=== PATIENT | female | born 1985 | race Hispanic/Latino ===

== ENCOUNTER 2016-11-25 07:04 | Inpatient (IN) | payer OTHER ==
[2016-11-25] MEDS ORDERED: ePHEDrine SULFATE IV PRN (07:18)
[2016-11-25] MEDS ORDERED: XYLOCAINE 2% INFILTRATI ONE (07:18)
[2016-11-25] MEDS ORDERED: MINERAL OIL PO PRN (07:18)
[2016-11-25] MEDS ORDERED: BRETHINE SUB-Q PRN (07:18)
[2016-11-25] MEDS ORDERED: POLYCILLIN/NS 2 GM/100 ML 2 GM/100 ML BAG IV ONE (07:18)
[2016-11-25] MEDS ORDERED: ZOFRAN IV PRN ×3 (07:18→17:53)
[2016-11-25] MEDS ORDERED: BRETHINE IVP PRN (07:18)
--- NOTE | 2016-11-25 07:36 | History and Physical Report ---
History of Present Illness Date of examination: 11/25/16 (SROM this AM) Date of admission: 11/25/16 07:07 History of present illness: EDC Confirmation: 12/04/2016 Gestational Age: 8 weeks Past History : 2 Living Children: 0 Para: 0 Spont. 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 Infection History Varicella/Chicken Pox Status: Previous Disease Genetic History Congenital Heart Defect: Mom: no Dad: no Elmo Disease: Mom: no Dad: no Thalassemia Mom: no Dad: no Neural Tube Defect Mom: no Dad: no Down's Syndrome Mom: no Dad: no Russell-Sachs Mom: no Dad: no Sickle Cell Disease/Trait Mom: no Dad: no Hemophilia Mom: no Dad: no Muscular Dystrophy Mom: no Dad: no Cystic Fibrosis Mom: no Dad: no Mcintosh Chorea Mom: no Dad: no Mental Retardation Mom: no Dad: no Fragile X Mom: no Dad: no Other Genetic/Chromosomal Disorder Mom: no Dad: no Child w/other defect Mom: no Dad: no Enviromental Exposures Xray Exposure: no Medication, drug, or alcohol use since LMP: no Chemical/Other Exposure: no Exposure to Cat Liter: no Hx of Parvovirus (Fifth Disease): no Occupational Exposure to Children: none Current Allergies (reviewed today): * OMNICEF (Critical) Laboratory Results Date/Time Collected: 04/24/2016 Routine Urinalysis Leukocytes: negative Nitrite: negative Urobilinogen: negative Protein: Negative Blood: negative Ketone: negative Bilirubin: negative Glucose: Negative Urine HCG: positive Review of Systems General Denies fever, chills, sweats, anorexia, fatigue, weakness, malaise, weight loss and sleep disorder. Denies nausea, vomiting, headache, swelling of legs, abdominal pain, vaginal discharge, vaginal bleeding and contractions. Denies vaginal discharge, incontinence, dysuria, hematuria, urinary frequency, amenorrhea, menorrhagia, abnormal vaginal bleeding, pelvic pain, genital sores, decreased libido, painful periods, painful sex, urinary urgency, hot flashes, vaginal dryness, vaginal itching and vaginal odor. CV Denies chest pains, palpitations, syncope, dyspnea on exertion, orthopnea, PND and peripheral edema. Resp Denies cough, dyspnea at rest, excessive sputum, hemoptysis, wheezing and pleurisy. GI Denies nausea, vomiting, diarrhea, constipation, change in bowel habits, abdominal pain, melena, hematochezia, jaundice, gas/bloating, indigestion/ heartburn, dysphagia and odynophagia. Endo Denies cold intolerance, heat intolerance, polydipsia, polyphagia, polyuria and unusual weight change. Breast Denies left breast lump, right breast lump, nipple discharge, bloody discharge from nipple, breast pain, abnormal mammogram and breast enlargement. MS Denies back pain, joint pain, joint swelling, muscle cramps, muscle weakness, stiffness, arthritis, sciatica, restless legs, leg pain at night and leg pain with exertion. Derm Denies rash, itching, dryness and suspicious lesions. Neuro Denies paralysis, paresthesias, headache, seizures, tremors, vertigo, transient blindness, frequent falls, frequent headaches and difficulty walking. Psych Denies depression, anxiety, irritability and mood swings. Eyes Denies blurring, diplopia, irritation, discharge, vision loss, eye pain and photophobia. ENT Denies earache, ear discharge, tinnitus, decreased hearing, nasal congestion, nosebleeds, sore throat and hoarseness. Allergy Denies urticaria, allergic rash, hay fever and recurrent infections. Heme Denies abnormal bruising, bleeding and enlarged lymph nodes. PHYSICAL EXAM HEENT: PERRLA, normal conjunctiva, external nose and nasal mucosa normal, oropharynx clear Neck/Thyroid: supple, thyroid normal Skin no significant abnormal lesions or rashes Chest: respiratory effort normal, clear to auscultation Breasts: normal without skin changes or masses CV: regular, normal S1-S2, no murmur, no rub, no gallop Abdomen: normal bowel sounds, soft, nontender, no HSM Musculoskeletal: grossly normal ROM in joints, no joint tenderness or muscle weakness Neuro: grossly normal DTRs, sensation, strength, cranial nerves Extremities: no clubbing, cyanosis, or edema Past History - Obstetrical History Expected Date of Delivery: 12/04/16 Actual Gestation: 38 Week(s) 5 Day(s) : 2 Para: 0 Hx # Term Pregnancies: 0 Spontaneous Abortions: 1 Number of Living Children: 0 Medications and Allergies Allergies Allergy/AdvReac Type Severity Reaction Status Date / Time cefdinir [From Omnicef] Allergy Shortness Unverified 11/25/16 07:05 of Breath Active Meds: Active Medications Ampicillin Sodium (Polycillin/Ns 1 Gm/50 Ml) 1 gm in 50 mls @ 100 mls/hr IV Q4HR L[facility]X PRN Reason: Protocol Ampicillin Sodium (Polycillin/Ns 2 Gm/100 Ml) 2 gm in 100 mls @ 100 mls/hr IV ONCE ONE PRN Reason: Protocol Stop: 11/25/16 08:17 - Physical Exam Breasts: Positive: deferred Cardiovascular: Regular rate, Normal S1, Normal S2 Lungs: Positive: Normal air movement Abdomen: Positive: normal appearance, soft, normal bowel sounds. Negative: distention, tenderness Genitourinary (Female): Positive: normal external genitalia Vulva: both: normal Vagina: Positive: normal moisture. Negative: discharge Cervix: Negative: lesion, discharge Uterus: Positive: normal size, normal contour Adnexa: both: normal Anus/Rectum: Positive: normal perianal skin, heme negative. Negative: rectal mass, hemorrhoids Extremities: Positive: normal Deep Tendon Reflex Grade: Normal +2 - Obstetrical FHR: category 1 Uterine Contraction Monitor Mode: External Cervical Dilatation: 1.5 Cervical Effacement Percentage: 50 station: -2 Uterine Contraction Pattern: Irregular Uterine Tone Measurement Phase: Resting Uterine Contraction Intensity: Mild Results All other labs normal. Tests: (2) Strep Gp B CARLEEN (057344) ! Strep Gp B CARLEEN [A] Positive HBsAg Screen Negative Negative *1 Rubella Antibodies, IgG 1.54 index Immune >0.99 *2 Non-immune <0.90 Equivocal 0.90 - 0.99 Immune >0.99 ABO Grouping O *3 Rh Factor Positive *4 Please note: Prior records for this patient's ABO / Rh type are not available for additional verification. Antibody Screen Negative Negative *5 RPR Non Reactive Non Reactive *6 WBC 8.9 x10E3/uL 3.4-10.8 *7 RBC 3.97 x10E6/uL 3.77-5.28 *8 Hemoglobin 12.0 g/dL 11.1-15.9 *9 Hematocrit 36.6 % 34.0-46.6 *10 MCV 92 fL 79-97 *11 MCH 30.2 pg 26.6-33.0 *12 MCHC 32.8 g/dL 31.5-35.7 *13 RDW 13.5 % 12.3-15.4 *14 Platelets 244 x10E3/uL 150-379 *15 Neutrophils 58 % *16 Lymphs 35 % *17 Monocytes 6 % *18 Eos 1 % *19 Basos 0 % *20 ! Immature Cells <No Reported Value> *21 Neutrophils (Absolute) 5.2 x10E3/uL 1.4-7.0 *22 Lymphs (Absolute) 3.1 x10E3/uL 0.7-3.1 *23 Monocytes(Absolute) 0.5 x10E3/uL 0.1-0.9 *24 Eos (Absolute) 0.1 x10E3/uL 0.0-0.4 *25 Baso (Absolute) 0.0 x10E3/uL 0.0-0.2 *26 ! Immature Granulocytes 0 % *27 ! Immature Grans (Abs) 0.0 x10E3/uL 0.0-0.1 *28 ! NRBC <No Reported Value> *29 Hematology Comments: <No Reported Value> *30 Tests: (2) Cystic Fibrosis Profile (344812) ! CF, Screen Comment: *31 RESULTS: Negative for 32 mutations analyzed Tests: (3) HB Solu + Rflx Fra (386654) Hemoglobin (Hgb) Solubility Negative Negative *33 Tests: (4) Panel 341210 (637751) HIV Screen 4th Generation wRfx Non Reactive Non Reactive *34 Tests: (5) HCV Ab w/Rflx to Verification (125169) ! HCV Ab <0.1 s/co ratio 0.0-0.9 *35 Assessment and Plan - Patient Problems (1) 38 weeks gestation of Onset Date: ~11/25/16 Current Visit: Yes Status: Acute Plan to address problem: 31yo @ 38.5 weeks with SROM clear fluid GBS + Orders in EMR (2) Group B Streptococcus carrier state affecting Onset Date: ~11/25/16 Current Visit: Yes Status: Acute Plan to address problem: Pt states she has no problem with Ampicillin Will order to treat GBS+ Re-eval as needed.
[2016-11-25] MEDS ORDERED: PITOCin/NS 20 UNIT/1000ML DRIP 20 UNITS/1,000 ML BAG IV SCH ×3 (08:00→17:53)
[2016-11-25] MEDS ORDERED: LACTATED RINGERS 1,000 ML IV SCH ×2 (08:00→14:00)
[2016-11-25] MEDS ORDERED: PITOCin/NS 30 UNIT/500ML 30 UNITS/500 ML BAG IV SCH (08:00)
[2016-11-25 08:11] LABS: Hematocrit 38.1 % (30.3-42.9); Hemoglobin 12.4 gm/dl (10.1-14.3); Mean Corpuscular HGB Conc 33 % (30-34); Mean Corpuscular Hemoglobin 28 pg (28-32); Mean Corpuscular Volume 85 fl (79-97); Platelet Count 199 K/mm3 (140-440); Red Blood Count 4.49 M/mm3 (3.65-5.03); Red Cell Distribution Width 15.9 % (13.2-15.2); White Blood Count 13.3 K/mm3 (4.5-11.0)
[2016-11-25] MEDS ORDERED: PITOCin/NS 20 UNIT/1000ML DRIP IV ONE (08:30)
[2016-11-25] MEDS ORDERED: PITOCin/NS 30 UNIT/500ML IV ONE (09:00)
[2016-11-25] MEDS: PITOCin/NS 30 UNIT/500ML 30 UNITS/500 ML BAG IV SCH ×4 (09:38→11:13)
[2016-11-25] MEDS ORDERED: POLYCILLIN/NS 1 GM/50 ML 1 GM/50 ML BAG IV SCH (11:20)
[2016-11-25] MEDS: SUBLIMAZE IV PRN ×2 (12:14→13:40)
[2016-11-25] MEDS ORDERED: BICITRA ONE (13:34)
[2016-11-25] MEDS ORDERED: REGLAN ONE (13:35)
[2016-11-25] MEDS ORDERED: PEPCID IV ONE ×2 (13:35→13:46)
--- NOTE | 2016-11-25 13:43 | Progress Note ---
Assessment and Plan SVE discovered BREECH complete Vertex in LUQ maternal abdomen. notified Pt consented Preop orders in EMR - Patient Problems (1) 38 weeks gestation of Onset Date: ~11/25/16 Current Visit: Yes Status: Acute (2) Group B Streptococcus carrier state affecting Onset Date: ~11/25/16 Current Visit: Yes Status: Acute Subjective - Subjective Date of service: 11/25/16 (sve BREECH) Interval history: EDC Confirmation: 12/04/2016 Gestational Age: 8 weeks Past History : 2 Living Children: 0 Para: 0 Spont. 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 Infection History Varicella/Chicken Pox Status: Previous Disease Genetic History Congenital Heart Defect: Mom: no Dad: no Elmo Disease: Mom: no Dad: no Thalassemia Mom: no Dad: no Neural Tube Defect Mom: no Dad: no Down's Syndrome Mom: no Dad: no Russell-Sachs Mom: no Dad: no Sickle Cell Disease/Trait Mom: no Dad: no Hemophilia Mom: no Dad: no Muscular Dystrophy Mom: no Dad: no Cystic Fibrosis Mom: no Dad: no Parke Chorea Mom: no Dad: no Mental Retardation Mom: no Dad: no Fragile X Mom: no Dad: no Other Genetic/Chromosomal Disorder Mom: no Dad: no Child w/other defect Mom: no Dad: no Enviromental Exposures Xray Exposure: no Medication, drug, or alcohol use since LMP: no Chemical/Other Exposure: no Exposure to Cat Liter: no Hx of Parvovirus (Fifth Disease): no Occupational Exposure to Children: none Current Allergies (reviewed today): * OMNICEF (Critical) Laboratory Results Date/Time Collected: 04/24/2016 Routine Urinalysis Leukocytes: negative Nitrite: negative Urobilinogen: negative Protein: Negative Blood: negative Ketone: negative Bilirubin: negative Glucose: Negative Urine HCG: positive Review of Systems General Denies fever, chills, sweats, anorexia, fatigue, weakness, malaise, weight loss and sleep disorder. Denies nausea, vomiting, headache, swelling of legs, abdominal pain, vaginal discharge, vaginal bleeding and contractions. Denies vaginal discharge, incontinence, dysuria, hematuria, urinary frequency, amenorrhea, menorrhagia, abnormal vaginal bleeding, pelvic pain, genital sores, decreased libido, painful periods, painful sex, urinary urgency, hot flashes, vaginal dryness, vaginal itching and vaginal odor. CV Denies chest pains, palpitations, syncope, dyspnea on exertion, orthopnea, PND and peripheral edema. Resp Denies cough, dyspnea at rest, excessive sputum, hemoptysis, wheezing and pleurisy. GI Denies nausea, vomiting, diarrhea, constipation, change in bowel habits, abdominal pain, melena, hematochezia, jaundice, gas/bloating, indigestion/ heartburn, dysphagia and odynophagia. Endo Denies cold intolerance, heat intolerance, polydipsia, polyphagia, polyuria and unusual weight change. Breast Denies left breast lump, right breast lump, nipple discharge, bloody discharge from nipple, breast pain, abnormal mammogram and breast enlargement. MS Denies back pain, joint pain, joint swelling, muscle cramps, muscle weakness, stiffness, arthritis, sciatica, restless legs, leg pain at night and leg pain with exertion. Derm Denies rash, itching, dryness and suspicious lesions. Neuro Denies paralysis, paresthesias, headache, seizures, tremors, vertigo, transient blindness, frequent falls, frequent headaches and difficulty walking. Psych Denies depression, anxiety, irritability and mood swings. Eyes Denies blurring, diplopia, irritation, discharge, vision loss, eye pain and photophobia. ENT Denies earache, ear discharge, tinnitus, decreased hearing, nasal congestion, nosebleeds, sore throat and hoarseness. Allergy Denies urticaria, allergic rash, hay fever and recurrent infections. Heme Denies abnormal bruising, bleeding and enlarged lymph nodes. PHYSICAL EXAM HEENT: PERRLA, normal conjunctiva, external nose and nasal mucosa normal, oropharynx clear Neck/Thyroid: supple, thyroid normal Skin no significant abnormal lesions or rashes Chest: respiratory effort normal, clear to auscultation Breasts: normal without skin changes or masses CV: regular, normal S1-S2, no murmur, no rub, no gallop Abdomen: normal bowel sounds, soft, nontender, no HSM Musculoskeletal: grossly normal ROM in joints, no joint tenderness or muscle weakness Neuro: grossly normal DTRs, sensation, strength, cranial nerves Extremities: no clubbing, cyanosis, or edema Patient reports: movement normal Objective - Vital Signs Vital Signs: Vital Signs - 12hr 11/25/16 11/25/16 11/25/16 07:35 07:52 09:38 Pulse Rate 80 83 88 Blood Pressure 149/78 144/72 178/85 11/25/16 11/25/16 11/25/16 09:45 10:14 10:40 Pulse Rate 80 70 80 Blood Pressure 153/72 156/79 146/75 11/25/16 11/25/16 11/25/16 11:17 11:50 11:55 Pulse Rate 81 86 82 Blood Pressure 158/79 162/77 157/75 - Exam Breasts: deferred Cardiovascular: Regular rate Lungs: Normal air movement Abdomen: Present: normal appearance, soft. Absent: distention, tenderness Uterus: Present: normal FHR: auscultation normal, category 1 Uterine Contraction Monitor Mode: External Cervical Dilatation: 4 Cervical Effacement Percentage: 80 station: -2 Uterine Contraction Pattern: Regular Uterine Tone Measurement Phase: Contraction Uterine Contraction Intensity: Moderate Extremities: edema Deep Tendon Reflex Grade: Normal +2 - Labs Labs: Abnormal Labs 11/25/16 07:45 WBC 13.3 H RDW 15.9 H Laboratory Results - last 24 hr 11/25/16 11/25/16 11/25/16 07:45 07:45 07:45 WBC 13.3 H RBC 4.49 Hgb 12.4 Hct 38.1 MCV 85 MCH 28 MCHC 33 RDW 15.9 H Plt Count 199 RPR Nonreactive Blood Type O POSITIVE Antibody Screen TNR SHERRI Antibody Screen Negative
[2016-11-25] MEDS ORDERED: BICITRA PO ONE (13:46)
[2016-11-25] MEDS ORDERED: REGLAN IV ONE (13:46)
[2016-11-25] MEDS ORDERED: ANCEF/STERILE WATER 2 GM/20 ML 2 GM/20 ML SYRINGE IV NR (14:00)
[2016-11-25] MEDS ORDERED: NARCAN 0.4 MG/1 ML IV PRN ×2 (14:02→17:53)
[2016-11-25] MEDS ORDERED: PHENERGAN PO PRN (14:02)
[2016-11-25] MEDS ORDERED: DILAUDID IV PRN (14:02)
--- NOTE | 2016-11-25 14:02 | Anesthesia Consultation ---
Anesthesia Consult and Med Hx Date of service: 11/25/16 - Airway Anesthetic Teeth Evaluation: Good ROM Head & Neck: Adequate Mental/Hyoid Distance: Adequate Mallampati Class: Class II - Pre-Operative Health Status ASA Pre-Surgery Classification: ASA2 Proposed Anesthetic Plan: Epidural, Spinal - Pulmonary Hx Asthma: No - Cardiovascular System Hx Hypertension: No - Central Nervous System Hx Seizures: No Hx Psychiatric Problems: No - Endocrine Hx Renal Disease: No Hx Hypothyroidism: No Hx Hyperthyroidism: No - Hematic Hx Anemia: No Hx Sickle Cell Disease: No - Other Systems Hx Alcohol Use: No - Additional Comments Anesthesia Medical History Comments: breeched presentation
[2016-11-25] MEDS ORDERED: TORADOL IV PRN (14:03)
[2016-11-25] MEDS ORDERED: BENADRYL IV PRN (14:03)
--- NOTE | 2016-11-25 14:04 | Anesthesia Day of Surgery ---
Anesthesia Day of Surgery - Day of Surgery Patient Examined: Yes Patient H&P Reviewed: Yes Patient is NPO: Yes
[2016-11-25] MEDS ORDERED: MORPHINE ONE (14:10)
[2016-11-25] MEDS ORDERED: WATER FOR IRRIG STERILE IR ONE (14:28)
[2016-11-25] MEDS ORDERED: NACL 0.9% IR ONE (14:28)
[2016-11-25] MEDS ORDERED: SODIUM CHLORIDE FLUSH SYRINGE 10 ML IV NR ×2 (15:00→17:53)
[2016-11-25] MEDS ORDERED: ZOFRAN ONE (15:08)
--- NOTE | 2016-11-25 15:16 | Operative Report ---
Operative Report Operative Report: Date of procedure: 12/05/2016 Pre-operative diagnosis: Any at 38 weeks 5 days, premature rupture of membranes, breech presentation Post-operative diagnosis: Same Procedure name(s): Primary low transverse section Surgeon: Haroon Kaplan MD Shoe Lay Out Planner: [] Anesthesia: Spinal EBL: 600 mL Complications: None Findings: Normal uterus tubes and ovaries bilaterally. Male infant weight 6 lbs. 11 oz. Apgars 8 at 1 minute and 9 at 5 minutes. had nuchal cord 2 Specimen(s): None Procedure: The patient was brought to the operating room. A spinal was placed without any complications. She was then placed in left lateral tilt. Prepped and draped in the usual sterile manner. After testing for adequate anesthesia level, a Pfannenstiel incision was made. This incision was taken down to the fascia. The fascia was then nicked in the midline. This incision was extended out laterally with Middleton scissors. The fascia was then sharply and bluntly from the underlying rectus muscles. The rectus muscles were bluntly and sharply . The peritoneum was then entered with the dicer operator's fingers. This incision was spread vertically with care not to damage the bladder below. Alin retractor was in place. The bladder flap was then formed sharply and bluntly with Metzenbaum scissors. A transverse incision was made in lower uterine segment. This incision was extended laterally with the operators fingers. The amniotic sac was then entered bluntly with the dicer operator' s fingers. The was delivered by delivered in the breech first flexing and extending the lower extremities followed by raising the breech then sweeping flexing and extending the upper extremities and after coming head was then delivered safely. The infant was bulb suctioned on the mother's abdomen. Cord was double clamped and cut. The infant was then passed to the nursery personnel who were in attendance. The above scores were given by the nursery personnel. The placenta was then bluntly removed. The uterus was then externalized and wiped clean the remaining products. The uterine incision was closed in layers. The first incision was closed in a locking manner using 0 Vicryl. This was followed by imbricating stitch also with 0 Vicryl. This closure was hemostatic. The bladder flap was copiously irrigated and found to be hemostatic. The pelvis was copiously irrigated and found to be hemostatic. The uterus was then placed back to the patient's abdomen. The retractors were removed. The rectus muscles were inspected and found to be hemostatic. The fascia was then closed in a running manner using 0 Vicryl. This incision was hemostatic irrigation Bovie. The skin was reapproximated with 4-0 Vicryl subcuticularly. The patient tolerated procedure well. Her urine was clear. The infant was admitted to the [facility] baby nursery. The patient was accompanied to recovery room in good condition. Instrument count correct 3.
[2016-11-25] MEDS ORDERED: MYLICON PO PRN (17:53)
[2016-11-25] MEDS ORDERED: MILK OF MAGNESIA PO PRN (17:53)
[2016-11-25] MEDS ORDERED: ANUCORT-HC PR PRN (17:53)
[2016-11-25] MEDS ORDERED: LANSINOH TP PRN (17:53)
[2016-11-25] MEDS ORDERED: TUCKS PAD TP PRN (17:53)
[2016-11-25] MEDS: TORADOL IV SCH (18:08)
[2016-11-25] MEDS: CLEOCIN 600 MG/50 mL 600 MG/50 ML BAG IV SCH (19:59)
[2016-11-25] MEDS: D5LR 1,000 ML IV SCH (23:05)
[2016-11-26] MEDS: TORADOL IV SCH ×2 (00:12→05:42)
[2016-11-26 01:46] LABS: Hematocrit 31.9 % (30.3-42.9); Hemoglobin 10.5 gm/dl (10.1-14.3)
[2016-11-26] MEDS: CLEOCIN 600 MG/50 mL 600 MG/50 ML BAG IV SCH (03:56)
[2016-11-26] MEDS: D5LR 1,000 ML IV SCH (05:43)
--- NOTE | 2016-11-26 07:37 | Progress Note ---
Assessment and Plan Patient doing well, pain well controlled, sitting up in bed - assisting w/ . postop H&H 10.5/31.9, AF, b/p 120-130's/60-70's. Activity and diet as tolerated. Continue current postop pathway. - Patient Problems (1) delivery delivered Current Visit: Yes Status: Acute Subjective - Subjective Date of service: 11/26/16 Principal diagnosis: postop day #1 s/p primary c/s for malpresentation Patient reports: appetite normal, voiding normally, pain well controlled, ambulating normally, no dizzy ambulation, no nauseated : doing well (working with on proper latch) Objective - Vital Signs Latest vital signs: Vital Signs Temp Pulse Resp BP BP Pulse Ox 11/26/16 05:42 20 11/26/16 01:18 98.3 F 87 20 138/73 11/26/16 00:12 20 11/25/16 21:02 97.7 F 81 18 138/65 11/25/16 16:45 97.5 F L 82 18 136/62 98 11/25/16 16:10 65 14 123/64 97 11/25/16 16:05 62 20 124/68 98 11/25/16 16:00 64 19 127/65 98 11/25/16 15:55 64 18 121/65 98 11/25/16 15:50 65 17 130/68 98 11/25/16 15:45 63 19 129/66 98 11/25/16 15:40 67 19 126/66 98 11/25/16 15:35 68 20 123/63 98 11/25/16 15:30 69 19 127/66 98 11/25/16 15:28 68 22 122/67 98 11/25/16 15:25 122/67 11/25/16 15:22 77 18 128/66 98 11/25/16 15:20 97.6 F 76 18 129/64 97 11/25/16 15:16 85 20 98 11/25/16 15:14 97.6 F 76 18 129/64 97 11/25/16 11:55 82 157/75 11/25/16 11:50 86 162/77 11/25/16 11:17 81 158/79 11/25/16 10:40 80 146/75 11/25/16 10:14 70 156/79 11/25/16 09:45 80 153/72 11/25/16 09:38 88 178/85 11/25/16 07:52 83 144/72 11/25/16 07:35 80 149/78 Intake and Output 11/25/16 11/25/16 11/26/16 15:59 23:59 07:59 Intake Total 806.333 650 829.167 Output Total 950 100 Balance -143.667 550 829.167 Intake: IV 806.333 650 829.167 CLEOCIN 600 MG/50 mL 600 50 mg In 50 ml @ 100 mls/hr IV Q8H LENNOX Rx#:[id number] D5lr 1,000 ml @ 125 mls/ 829.167 hr IV DIRECT LENNOX Rx#: [id number] PITOCin/NS 30 UNIT/500ML 6.333 30 units In 500 ml @ 4 mls/hr IV Q30MIN LENNOX Rx#: [id number] Output: Urine 950 100 Indwelling Catheter 850 Other: Total, Output Amount 150 Weight 85.729 kg - Exam Breasts: Present: normal, Cardiovascular: Present: Regular rate Lungs: Present: Clear to auscultation, Normal air movement Abdomen: Present: normal appearance, soft Vulva: both: normal Uterus: Present: normal, firm, fundal height at umbilicus Extremities: Present: normal Incision: Present: normal, dry, dressed (rn to remove dressing during AM care) - Labs Labs: Abnormal lab results 11/25/16 Range/Units 07:45 WBC 13.3 H (4.5-11.0) K/mm3 RDW 15.9 H (13.2-15.2) %
--- NOTE | 2016-11-26 08:22 | Progress Note ---
Subjective Date of service: 11/26/16 Principal diagnosis: postop day #1 s/p primary c/s for malpresentation Interval history: 1st POD after primary Patient is in the bed, comfortable. Pain is well controlled with pain meds. Ambulated well. No residual neurological deficit. No pruritus. No anesthesia complications Objective - Constitutional Vitals: Vital Signs - 12hr 11/25/16 11/26/16 11/26/16 21:02 00:12 01:18 Temperature 97.7 F 98.3 F Pulse Rate 81 87 Respiratory 18 20 20 Rate Blood Pressure 138/65 138/73 [Right] 11/26/16 11/26/16 03:59 05:42 Temperature 98.1 F Pulse Rate 83 Respiratory 18 20 Rate Blood Pressure 130/66 [Right] - Labs CBC & Chem 7: 11/26/16 01:33
[2016-11-26] MEDS: MOTRIN PO PRN ×3 (11:14→23:42)
[2016-11-26] MEDS: FEOSOL PO SCH (11:14)
[2016-11-26] MEDS: PRENATAL VITAMIN PO SCH (11:14)
[2016-11-27] MEDS: MOTRIN PO PRN ×3 (05:11→18:11)
--- NOTE | 2016-11-27 06:15 | Progress Note ---
Assessment and Plan - Patient Problems (1) delivery delivered Onset Date: ~11/25/16 Current Visit: Yes Status: Acute Plan to address problem: Pt OOB No voiced c/o BP 140/70 Pt upset @ feeding issues which seem to be resolved Will monitor BPs. FF below umb Lochia scant Incision D&I No s/sx of anemia Doing well s/p section P: continue pathway will continue to assist with breast feeding advise D/C tomorrow. Subjective - Subjective Date of service: 11/27/16 (OOB ambulating in room) Principal diagnosis: postop day #2 s/p primary c/s for malpresentation Interval history: EDC Confirmation: 12/04/2016 Gestational Age: 8 weeks Past History : 2 Living Children: 0 Para: 0 Spont. Ab: 1 # 1 Delivery date: 08/2015 Weeks Gestation: 6 Delivery type: SAB Comments: denies complications Risk Factors: Smoked Tobacco Use: Never smoker Smokeless Tobacco Use: Never Passive smoke exposure: no Drug use: no Caffeine use: 1 drinks per day Alcohol use: no Seatbelt use: preg-senior counsel % Dietary Counseling: pn yes Past Medical History: Reviewed history from 12/29/2014 and no changes required: migraines Past Surgical History: Reviewed history from 12/29/2014 and no changes required: positive fusion of cervical 1-2-3 2005 Past Medical History Abnormal PAP: negative DELTA Exposure: negative Infertility: negative Uterine Anomaly: negative Uterine Surgery (not C/S): negative Other Gynecologic Problems: negative Social Hx: Patient is Smoking History: Patient has never smoked. Infection History Varicella/Chicken Pox Status: Previous Disease Genetic History Congenital Heart Defect: Mom: no Dad: no Elmo Disease: Mom: no Dad: no Thalassemia Mom: no Dad: no Neural Tube Defect Mom: no Dad: no Down's Syndrome Mom: no Dad: no Russell-Sachs Mom: no Dad: no Sickle Cell Disease/Trait Mom: no Dad: no Hemophilia Mom: no Dad: no Muscular Dystrophy Mom: no Dad: no Cystic Fibrosis Mom: no Dad: no [place] Chorea Mom: no Dad: no Mental Retardation Mom: no Dad: no Fragile X Mom: no Dad: no Other Genetic/Chromosomal Disorder Mom: no Dad: no Child w/other defect Mom: no Dad: no Enviromental Exposures Xray Exposure: no Medication, drug, or alcohol use since LMP: no Chemical/Other Exposure: no Exposure to Cat Liter: no Hx of Parvovirus (Fifth Disease): no Occupational Exposure to Children: none Current Allergies (reviewed today): * OMNICEF (Critical) Laboratory Results Date/Time Collected: 04/24/2016 Routine Urinalysis Leukocytes: negative Nitrite: negative Urobilinogen: negative Protein: Negative Blood: negative Ketone: negative Bilirubin: negative Glucose: Negative Urine HCG: positive Review of Systems General Denies fever, chills, sweats, anorexia, fatigue, weakness, malaise, weight loss and sleep disorder. Denies nausea, vomiting, headache, swelling of legs, abdominal pain, vaginal discharge, vaginal bleeding and contractions. Denies vaginal discharge, incontinence, dysuria, hematuria, urinary frequency, amenorrhea, menorrhagia, abnormal vaginal bleeding, pelvic pain, genital sores, decreased libido, painful periods, painful sex, urinary urgency, hot flashes, vaginal dryness, vaginal itching and vaginal odor. CV Denies chest pains, palpitations, syncope, dyspnea on exertion, orthopnea, PND and peripheral edema. Resp Denies cough, dyspnea at rest, excessive sputum, hemoptysis, wheezing and pleurisy. GI Denies nausea, vomiting, diarrhea, constipation, change in bowel habits, abdominal pain, melena, hematochezia, jaundice, gas/bloating, indigestion/ heartburn, dysphagia and odynophagia. Endo Denies cold intolerance, heat intolerance, polydipsia, polyphagia, polyuria and unusual weight change. Breast Denies left breast lump, right breast lump, nipple discharge, bloody discharge from nipple, breast pain, abnormal mammogram and breast enlargement. MS Denies back pain, joint pain, joint swelling, muscle cramps, muscle weakness, stiffness, arthritis, sciatica, restless legs, leg pain at night and leg pain with exertion. Derm Denies rash, itching, dryness and suspicious lesions. Neuro Denies paralysis, paresthesias, headache, seizures, tremors, vertigo, transient blindness, frequent falls, frequent headaches and difficulty walking. Psych Denies depression, anxiety, irritability and mood swings. Eyes Denies blurring, diplopia, irritation, discharge, vision loss, eye pain and photophobia. ENT Denies earache, ear discharge, tinnitus, decreased hearing, nasal congestion, nosebleeds, sore throat and hoarseness. Allergy Denies urticaria, allergic rash, hay fever and recurrent infections. Heme Denies abnormal bruising, bleeding and enlarged lymph nodes. PHYSICAL EXAM HEENT: PERRLA, normal conjunctiva, external nose and nasal mucosa normal, oropharynx clear Neck/Thyroid: supple, thyroid normal Skin no significant abnormal lesions or rashes Chest: respiratory effort normal, clear to auscultation Breasts: normal without skin changes or masses CV: regular, normal S1-S2, no murmur, no rub, no gallop Abdomen: normal bowel sounds, soft, nontender, no HSM Musculoskeletal: grossly normal ROM in joints, no joint tenderness or muscle weakness Neuro: grossly normal DTRs, sensation, strength, cranial nerves Extremities: no clubbing, cyanosis, or edema Patient reports: appetite normal, voiding normally, pain well controlled, ambulating normally [place]: doing well Objective - Vital Signs Latest vital signs: Vital Signs Temp Pulse Resp BP BP Pulse Ox 11/27/16 04:05 98 F 75 20 145/77 100 11/27/16 01:22 98.9 F 93 H 20 145/69 96 11/26/16 16:00 98.4 F 80 18 132/68 11/26/16 12:00 98.0 F 85 16 128/60 11/26/16 08:55 97.5 F L 72 16 130/68 97 Intake and Output 11/26/16 11/26/16 11/27/16 14:59 22:59 06:59 Intake Total 240 Output Total 900 Balance -900 240 Intake: Oral 240 Output: Urine 900 Void 900 Other: Total, Intake Amount 240 Total, Output Amount 900 # Voids Void 1 1 - Exam Breasts: Present: normal Cardiovascular: Present: Regular rate Lungs: Present: Normal air movement Abdomen: Present: normal appearance, soft, normal bowel sounds Uterus: Present: normal, firm, fundal height below umbilicus Extremities: Present: normal Deep Tendon Reflex Grade: Normal +2 Incision: Present: normal, dry, intact
[2016-11-27] MEDS: NORCO 5/325 PO PRN ×2 (06:32→14:15)
[2016-11-27] MEDS: PRENATAL VITAMIN PO SCH (09:35)
[2016-11-27] MEDS: FEOSOL PO SCH (09:35)
--- NOTE | 2016-11-28 06:32 | Discharge Summary ---
Providers - Providers Date of Admission: 11/25/16 07:07 Date of discharge: 11/28/16 (pt agrees with d/c ) Attending physician: JN SPAULDING 11/25/16 17:53 Consult to Sheriff'S Officer [CONS] Routine Reason For Exam: Primary care physician: JN SPAULDING Hospitalization Reason for admission: active labor, rupture of membranes Delivery: Procedure: primary low transverse (BREECH) Episiotomy: none Laceration: none Incision: normal, dry, intact Other procedures: none complications: none Discharge diagnosis: IUP at term delivered [place] baby: male Hospital course: uncomplicated sectio due to breech presentation Pt resting No c/o voiced VSS FF below umb Lochia small Incision D&I Asymptomatic of anemia. Doing well s/p section P: d/c today with instructions RTO 1 week for postop care and son's circ RX provided @ d/c Condition at discharge: Good Disposition: DC-01 TO HOME OR SELFCARE - Discharge Diagnoses (1) delivery delivered Status: Acute Comment: rto 1 week postop care Plan - Discharge Medications Prescriptions: Ferrous Sulfate [Feosol 325 MG tab] 325 mg PO BID #60 tablet Ibuprofen [Motrin 800 MG tab] 800 mg PO Q6H PRN #30 tablet PRN Reason: Pain oxyCODONE /ACETAMINOPHEN [Percocet 5/325 mg] 1 - 2 tab PO Q4H PRN #30 tablet PRN Reason: Pain, Moderate - Provider Discharge Summary Activity: routine, no sex for 6 weeks, no heavy lifting 4 weeks, no strenuous exercise Diet: routine Instructions: routine Additional instructions: [] Smoking cessation referral if applicable(refer to patient education folder for contact #) [] Refer to [facility] Booklet Call your doctor immediately for: * Fever > 100.5 * Heavy vaginal bleeding ( >1 pad per hour) * Severe persistent headache * Shortness of breath * Reddened, hot, painful area to leg or breast * Drainage or odor from incision. * Keep incision clean and dry at all times and follow doctor's instructions regarding bathing/showering - Follow up plan Follow up: JN SPAULDING MD [Primary Care Provider] - 12/03/16 (Congratulations! Please call [phone] for appointment in 1 week for postoperative care and your son's circumcision. Bring the EMLA cream with you to his visit, for instructions on its use. Take medications as prescribed. Call with any concerns.)
[2016-11-28] MEDS: MOTRIN PO PRN (11:35)
[2016-11-28] MEDS: PRENATAL VITAMIN PO SCH (11:35)
[2016-11-28] MEDS: FEOSOL PO SCH (11:35)
[2016-11-28 13:31] VITALS: BP 148/70
== END 2016-11-28 16:15 | disposition home or self-care (01) | DRG 766 ==
LOC: TRG 07:04 → LD 07:07 → OB 16:33
PROVIDERS: ADMIT Obstetrics & Gynecology; ATTEND Obstetrics & Gynecology
PROC: 10D00Z1 Extraction of Products of Conception, Low, Open Approach (ICD-10-PCS; principal; 2016-11-25)
DX: O42.92 Full-term premature rupture of membranes, unspecified as to length of time between rupture and onset of labor (principal); Z3A.38 38 weeks gestation of pregnancy; Z37.0 Single live birth; O32.1XX0 Maternal care for breech presentation, not applicable or unspecified; O99.824 Streptococcus B carrier state complicating childbirth; O69.81X0 Labor and delivery complicated by cord around neck, without compression, not applicable or unspecified
CPT/HCPCS: 36415; 85014; 85018; 85027; 86592; 86850; 86900; 86901; 99211; A6250; G0463; J0290; J1885; J2270; J2405; J2590; J2765; J3010; J7120; J7121

== ENCOUNTER 2017-05-21 11:29 | Outpatient (CLI) | payer OTHER ==
--- NOTE | 2017-05-21 15:46 | XRay Report ---
X-RAY RIGHT WRIST FOUR VIEWS: 05/21/17 CLINICAL: Right wrist pain. FINDINGS: No fracture or dislocation. The carpal bones are intact. Mild radiocarpal joint arthritis. Normal soft tissues. IMPRESSION: Mild radiocarpal joint arthritis and otherwise negative.
== END 2017-05-21 11:30 | disposition home or self-care (01) ==
LOC: SPVIMAG 11:29
PROVIDERS: ATTEND Orthopaedic Surgery
DX: M19.031 Primary osteoarthritis, right wrist (principal)

== ENCOUNTER 2020-09-28 22:30 | Inpatient (IN) | payer OTHER ==
[2020-09-28] MEDS ORDERED: LACTATED RINGERS 1,000 ML ONE (23:44)
[2020-09-28] MEDS ORDERED: OXYTOCIN DRIP 30 UNITS/500 ML BAG IV SCH (23:45)
[2020-09-28] MEDS ORDERED: GENTAMICIN 0 MG in SODIUM CHLORIDE 0.9% 100 ML IV ONE (23:57)
[2020-09-28] MEDS ORDERED: METOCLOPRAMIDE 10 MG/2 ML INJ IV ONE (23:57)
[2020-09-28] MEDS ORDERED: FAMOTIDINE 20 MG/2 ML INJ IV ONE (23:57)
[2020-09-28] MEDS ORDERED: BICITRA ORAL LIQD 30ML PO ONE (23:57)
--- NOTE | 2020-09-29 00:09 | Anesthesia Day of Surgery ---
Anesthesia Day of Surgery - Day of Surgery Patient Examined: Yes Patient H&P Reviewed: Yes Patient is NPO: No (<8 hrs)
--- NOTE | 2020-09-29 00:09 | Anesthesia Consultation ---
Anesthesia Consult and Med Hx Date of service: 09/29/20 - Airway Anesthetic Teeth Evaluation: Good ROM Head & Neck: Adequate Mental/Hyoid Distance: Adequate Mallampati Class: Class II Intubation Access Assessment: Good - Pulmonary Exam CTA: Yes - Cardiac Exam Cardiac Exam: RRR - Pre-Operative Health Status Proposed Anesthetic Plan: Spinal - Pulmonary Hx Asthma: No - Cardiovascular System Hx Hypertension: No - Central Nervous System Hx Seizures: No Hx Psychiatric Problems: No - Endocrine Hx Renal Disease: No Hx Hypothyroidism: No Hx Hyperthyroidism: No - Hematic Hx Anemia: No Hx Sickle Cell Disease: No - Other Systems Hx Alcohol Use: No
[2020-09-29] MEDS: LACTATED RINGERS 1,000 ML IV SCH ×2 (00:16→01:55)
--- NOTE | 2020-09-29 00:21 | History and Physical Report ---
History of Present Illness Date of examination: 09/28/20 Date of admission: 09/28/20 22:30 Chief complaint: "my water broke" History of present illness: EDC Confirmation: 10/08/2020 Past History : 3 Para: 1 Term: 1 :0 SAB:1 EAB:0 Livin #1: 08/2015 SAB @6wks EGA, denies complications #2: 11/25/2016 38wks EGA, section @[facility] for SROM breech presentation, denies complications, Baby boy "Ray" 6.69 lbs Past Medical History: Reviewed history from 12/29/2014 and no changes required: migraines Past Surgical History: Reviewed history from 12/03/2016 and no changes required: positive fusion of cervical 1-2-3 2006 (11/25/2016) Past Medical History Abnormal PAP: negative DELTA Exposure: negative Infertility: negative Uterine Anomaly: negative Uterine Surgery (not C/S): negative Other Gynecologic Problems: negative Social Hx: Patient is Smoking History: Patient has never smoked. Infection History Hx of STD: none HIV Risk Eval: no Hepatitis B Risk Eval: low risk Personal hx. of genital herpes: no Partner hx. of genital herpes: no Rash, Viral, or Febrile illness since last LMP? no Varicella/Chicken Pox Status: Previous Disease Genetic History Congenital Heart Defect: Mom: no Dad: no Elmo Disease: Mom: no Dad: no Thalassemia Mom: no Dad: no Neural Tube Defect Mom: no Dad: no Down's Syndrome Mom: no Dad: no Russell-Sachs Mom: no Dad: no Sickle Cell Disease/Trait Mom: no Dad: no Hemophilia Mom: no Dad: no Muscular Dystrophy Mom: no Dad: no Cystic Fibrosis Mom: no Dad: no [place] Chorea Mom: no Dad: no Mental Retardation Mom: no Dad: no Fragile X Mom: no Dad: no Other Genetic/Chromosomal Disorder Mom: no Dad: no Child w/other defect Mom: no Dad: no Enviromental Exposures Xray Exposure: no Medication, drug, or alcohol use since LMP: no Chemical/Other Exposure: no Exposure to Cat Liter: no Hx of Parvovirus (Fifth Disease): no Occupational Exposure to Children: none Active Medications (reviewed today): MIRENA (52 MG) 20 MCG/24HR INTRAUTERINE INTRAUTERINE DEVICE (LEVONORGESTREL) CITALOPRAM HYDROBROMIDE 0 MG ORAL TABLET (CITALOPRAM HYDROBROMIDE) () 1 po qd Current Allergies (reviewed today): * OMNICEF (Critical) Past History Past Medical History: other (see HPI) Past Surgical History: other (see HPI) MOTEL OPERATOR History: other (see HPI) Family/Genetic History: other (see HPI) Social history: other (see HPI) - Obstetrical History Expected Date of Delivery: 10/08/20 Actual Gestation: 38 Week(s) 5 Day(s) : 3 Para: 1 Hx # Term Pregnancies: 1 Number of Pregnancies: 0 Spontaneous Abortions: 1 Induced : 0 Number of Living Children: 1 Medications and Allergies Allergies Allergy/AdvReac Type Severity Reaction Status Date / Time cefdinir [From Omnicef] Allergy Shortness Verified 11/25/16 13:42 of Breath Home Medications Medication Instructions Recorded Confirmed Last Taken Type Ferrous Sulfate [Feosol 325 MG tab] 325 mg PO BID #60 tablet 11/25/16 Unknown Rx Ibuprofen [Motrin 800 MG tab] 800 mg PO Q6H PRN #30 tablet 11/25/16 Unknown Rx oxyCODONE /ACETAMINOPHEN [Percocet 1 - 2 tab PO Q4H PRN #30 tablet 11/25/16 Unknown Rx 5/325 mg] Vit-Fe Fumar-FA [ 1 tab PO QDAY 11/27/16 11/27/16 11/25/16 History Vitamin] Lidocain2.5%/Prilocai2.5% [Emla] 5 gm TP PRN #1 tube 11/28/16 Unknown Rx Active Meds: Active Medications Citric Acid/Sodium Citrate (Bicitra Oral Liqd 30ml) 30 ml PO ONCE ONE Stop: 09/28/20 23:58 Famotidine (Famotidine 20 Mg/2 Ml Inj) 20 mg IV ONCE ONE Stop: 09/28/20 23:58 Lactated Ringer's (Lactated Ringers) 1,000 mls @ 2,250 mls/hr IV PREOP LENNOX Stop: 09/30/20 00:12 Oxytocin/Sodium Chloride (Pitocin/Ns 30 Unit/500ml) 30 units in 500 mls @ 0 mls/hr IV TITR LENNOX; Protocol Clindamycin HCl (Cleocin 900 Mg/50 Ml) 900 mg in 50 mls @ 100 mls/hr IV PREOP NR; Protocol Gentamicin Sulfate / Sodium (Chloride) 100 mls @ 200 mls/hr IV PREOP ONE; Protocol Stop: 09/29/20 00:26 Metoclopramide HCl (Metoclopramide 10 Mg/2 Ml Inj) 10 mg IV ONCE ONE Stop: 09/28/20 23:58 Review of Systems All systems: negative Genitourinary: leakage of fluid, contractions - Vital Signs Vital signs: Vital Signs Pulse Ox 98 09/28/20 23:42 Temp Pulse Resp BP Pulse Ox 80 160/72 98 09/29/20 00:08 09/29/20 00:08 09/28/20 23:42 - Physical Exam Breasts: Positive: deferred Cardiovascular: Regular rate Lungs: Positive: Normal air movement Abdomen: Positive: normal appearance, soft Genitourinary (Female): Positive: normal external genitalia, normal perenium Vulva: both: normal Vagina: Positive: discharge Uterus: Positive: normal size, normal contour Anus/Rectum: Positive: normal perianal skin Extremities: Positive: normal - Obstetrical FHR: auscultation normal, category 1 Uterine Contraction Monitor Mode: External Cervical Dilatation: 1 (per chief risk officer) Uterine Contraction Pattern: Irregular Uterine Tone Measurement Phase: Resting Results All other labs normal. 09/12/2020: Tests: (1) Ct, Ng, Trich vag by CARLEEN ([id number]) Order Note: Clinical Information: SRC:VR SRC:UR Chlamydia by CARLEEN Negative Negative *1 Gonococcus by CARLEEN Negative Negative *2 Trich vag by CARLEEN Negative Negative *3 Tests: (2) Strep Gp B CARLEEN ([id number]) ! Strep Gp B ACRLEEN Negative Negative *4 Tests: (1) Profile I ([id number]) Order Note: Clinical Information: SRC:UR HBsAg Screen Negative Negative *1 RPR Non Reactive Non Reactive *2 Rubella Antibodies, IgG 1.96 index Immune >0.99 *3 Non-immune <0.90 Equivocal 0.90 - 0.99 Immune >0.99 ABO Grouping O *4 Rh Factor Positive *5 Please note: Prior records for this patient's ABO / Rh type are not available for additional verification. Antibody Screen Negative Negative *6 WBC 5.7 x10E3/uL 3.4-10.8 *7 RBC 3.99 x10E6/uL 3.77-5.28 *8 Hemoglobin 12.0 g/dL 11.1-15.9 *9 Hematocrit 35.8 % 34.0-46.6 *10 MCV 90 fL 79-97 *11 MCH 30.1 pg 26.6-33.0 *12 MCHC 33.5 g/dL 31.5-35.7 *13 RDW 12.3 % 11.7-15.4 *14 Platelets 233 x10E3/uL 150-450 *15 Neutrophils 59 % Not Estab. *16 Lymphs 29 % Not Estab. *17 Monocytes 11 % Not Estab. *18 Eos 1 % Not Estab. *19 Basos 0 % Not Estab. *20 ! Immature Cells <No Reported Value> *21 Neutrophils (Absolute) 3.3 x10E3/uL 1.4-7.0 *22 Lymphs (Absolute) 1.7 x10E3/uL 0.7-3.1 *23 Monocytes(Absolute) 0.6 x10E3/uL 0.1-0.9 *24 Eos (Absolute) 0.0 x10E3/uL 0.0-0.4 *25 Baso (Absolute) 0.0 x10E3/uL 0.0-0.2 *26 ! Immature Granulocytes 0 % Not Estab. *27 ! Immature Grans (Abs) 0.0 x10E3/uL 0.0-0.1 *28 ! NRBC <No Reported Value> *29 Hematology Comments: <No Reported Value> *30 Tests: (2) HIV Ag/Ab with Reflex ([id number]) HIV Screen 4th Generation wRfx Non Reactive Non Reactive *31 Tests: (3) HCV Ab w/Rflx to Verification ([id number]) ! HCV Ab <0.1 s/co ratio 0.0-0.9 *32 Tests: (4) Comment: ([id number]) ! Comment: SPRCS *33 Non reactive HCV antibody screen is consistent with no HCV infection, unless recent infection is suspected or other evidence exists to indicate HCV infection. Tests: (5) Urine Culture, Routine ([id number]) Urine Culture, Routine Final report *34 Tests: (6) Result ([id number]) ! Result 1 MTWO *35 Greater than 2 organisms recovered, none predominant. Please submit another sample if clinically indicated. 25,000-50,000 colony forming units per mL Assessment and Plan Pt presents to triage grossly ruptured with c/o "my water broke in the car". Pt with H/O , SVE 1cm per chief risk officer; Cat 1FHT's and irregular contractions noted. Pt consented for delivery with salpingectomy permanent sterilization. Maternal and risks and benefits reviewed including but not limited to infection, bleeding, compromise, and/or . Pt verbalizes understanding. DR Kaplan notified and orders placed in EMR - Patient Problems (1) Maternal care due to low transverse uterine scar from previous delivery Current Visit: Yes Status: Acute Plan to address problem: Prep pt for Csection per ordered protocol Pt allergic to cefdinir, alternative antibiotics ordered per protocol; anesthesia notified and agrees to POC (2) Rupture of membranes with clear amniotic fluid Current Visit: Yes Status: Acute (3) 38 weeks gestation of Onset Date: ~11/25/16 Current Visit: No Status: Acute (4) Elevated blood pressure reading Current Visit: Yes Status: Acute Plan to address problem: BP elevated, pt reports BP taken during contractions, retake 158/71 Denies GOULD, blurred vision, chest pain, and RUQ pain Reports spots in eyes earlier today but resolved quickly and spontaneously Preeclampsia labs ordered Discussed Magnesium administration for seizure prophylaxis Monitor closely and notify provider with any changes in status (5) Request for sterilization Current Visit: Yes Status: Acute Plan to address problem: Pt requests salpingectomy permanent sterilization today, as previously consented in office chart
[2020-09-29 00:28] LABS: Basophils # (Auto) 0.1 K/mm3 (0.0-0.1); Basophils % (Auto) 0.5 % (0.0-1.8); Eosinophils # (Auto) 0.1 K/mm3 (0.0-0.4); Eosinophils % (Auto) 0.7 % (0.0-4.3); Hematocrit 28.9 % (30.3-42.9); Hemoglobin 9.6 gm/dl (10.1-14.3); Lymphocytes # (Auto) 2.9 K/mm3 (1.2-5.4); Lymphocytes % (Auto) 27.7 % (13.4-35.0); Mean Corpuscular HGB Conc 33 % (30-34); Mean Corpuscular Volume 82 fl (79-97); Monocytes # (Auto) 0.8 K/mm3 (0.0-0.8); Monocytes % (Auto) 7.6 % (0.0-7.3); Platelet Count 206 K/mm3 (140-440); Red Blood Count 3.55 M/mm3 (3.65-5.03)
[2020-09-29] MEDS ORDERED: GENTAMICIN/NS 100 MG/100 ML 100 MG/100 ML BAG IV ONE (01:00)
[2020-09-29] MEDS ORDERED: MAGNESIUM SULFATE 40GM/1000ML 40 GM/1,000 ML BAG IV ONE (01:18)
[2020-09-29] MEDS ORDERED: MAGNESIUM SULFATE 4 GM/100 ML BAG IV ONE ×3 (01:18→01:21)
[2020-09-29 01:41] LABS: Hematocrit 22.9 % (30.3-42.9); Hemoglobin 7.6 gm/dl (10.1-14.3); Mean Corpuscular HGB Conc 33 % (30-34); Mean Corpuscular Volume 81 fl (79-97); Platelet Count 167 K/mm3 (140-440); Red Blood Count 2.82 M/mm3 (3.65-5.03); Red Cell Distribution Width 14.9 % (13.2-15.2)
[2020-09-29] MEDS ORDERED: MAGNESIUM SULFATE 40GM/1000ML 40 GM/1,000 ML BAG IV SCH (02:00)
[2020-09-29] MEDS ORDERED: BICITRA ORAL LIQD 30ML ONE (02:00)
[2020-09-29] MEDS ORDERED: FAMOTIDINE 20 MG/2 ML INJ IV ONE (02:00)
[2020-09-29] MEDS ORDERED: METOCLOPRAMIDE 10 MG/2 ML INJ ONE (02:00)
[2020-09-29] MEDS ORDERED: ONDANSETRON 4 MG/2 ML INJ ONE (02:15)
[2020-09-29] MEDS ORDERED: BUPIVACAINE /DEX-WATER 0.75% (2 ML) AMPULE INFILTRATI ONE (02:15)
[2020-09-29 02:18] LABS: Alanine Aminotransferase 10 units/L (7-56); Uric Acid 5.4 mg/dL (3.5-7.6)
--- NOTE | 2020-09-29 02:26 | Event Note ---
Date: 09/29/20 Patient informed the risks of the surgery include bleeding possibly bleeding heavy enough to require blood transfusion, infection possible damage to bowel bladder ureter. All questions answered. Patient agrees to proceed. Patient desires permanent sterilization. She declined temporary contraceptives. She understands that this surgery would make her permanently sterile. She also understands the approximate 1% failure rate. The patient understands all the above and desires to proceed with salpingectomy
[2020-09-29] MEDS ORDERED: SODIUM CHLORIDE 0.9% IRR 1,500 ML BOTTLE IR ONE (02:30)
[2020-09-29] MEDS ORDERED: WATER FOR IRRIG STERILE 1,500 ML BOTTLE IR ONE (02:30)
[2020-09-29] MEDS ORDERED: GENTAMICIN/NS 80 MG/100 ML 100 ML IV ONE (02:31)
--- NOTE | 2020-09-29 04:00 | Operative Report ---
Operative Report Operative Report: Date of procedure: September 29, 2020 Pre-operative diagnosis: Intrauterine at 38 weeks with previous section with premature rupture membranes active labor with previous section and desired permanent sterilization Post-operative diagnosis: Same Procedure name(s): Repeat low transverse section with bilateral salpingectomy Surgeon: Haroon Kaplan MD Air Bag Stripper: Emily Erazo, certified nurse psychiatric social worker Anesthesia: Spinal EBL: 600 cc Complications: None Findings: Patient with adhesions of the anterior uterus to the bladder and thick adhesions through the rectus muscles. Small leiomyomata uterus normal-appearing tubes and ovaries bilaterally. Female weight 7 pounds 0 ounces Apgars 8 at 1 minute and nine at 5 minutes Specimen(s): Right and left fallopian tubes Procedure: The patient was brought to the operating room. A spinal was placed without any complications. She was then placed in left lateral tilt. Prepped and draped in the usual sterile manner. After testing for adequate anesthesia level, a Pfannenstiel incision was made through her previous scar. This incision was taken down to the fascia. The fascia was then nicked in the midline. This incision was extended out laterally with Middleton scissors. The fascia was then sharply and bluntly from the underlying rectus muscles. The rectus muscles were bluntly and sharply . The peritoneum was then entered with the breaker up machine operator's fingers. This incision was spread vertically with care not to damage the bladder below. [The Alin self-retaining tractor was then placed without any difficulty.] The bladder flap was then formed sharply and bluntly with Metzenbaum scissors. A transverse incision was made in lower uterine segment. This incision was extended laterally with the operators fingers. The amniotic sac was then entered bluntly with the operato r's fingers. The was delivered from the vertex position. Bulb suction on the mother's abdomen. Cord was double clamped and cut. The infant was then passed to the nursery personnel who were in attendance. The above scores were given by the nursery personnel. The placenta was then bluntly removed. The uterus was then externalized and wiped clean the remaining products. The uterine incision was closed in layers. The first incision was closed in a locking manner using 0 Vicryl. This was followed by imbricating stitch also with 0 Vicryl. Attention was then switched to the patient's fallopian tubes. Each fallopian tube was identified by its fimbriated end. Starting on the patient's right side. A portion of each tube was grabbed with the Serenity clamp approximately 2-3 cm from the cornua. A second Serenity grasp the distal in the fallopian tube the tube was raised the medially and was transferred dissected with the Bovie. The mesosalpinx was cauterized and cut immediately under the fallopian tube until the distal end was reached and the tube was detached. The remaining mesosalpinx and ovary were inspected and found to be hemostatic. Attention was then switched to the patient's left fallopian tube where the same seizure was performed with good hemostasis. Attention was then switched back to the uterine closure. This closure was hemostatic. The bladder flap was copiously irrigated and found to be hemostatic. The pelvis was copiously irrigated and found to be hemostatic. The uterus was then placed back to the patient's abdomen. The retractors were removed. The rectus muscles were inspected and found to be hemostatic. The fascia was then closed in a running manner using 0 Vicryl. This incision was hemostatic irrigation Bovie. The skin was reapproximated with 4-0 Vicryl subcuticularly. The patient tolerated procedure well. Her urine was clear. The infant was admitted to [the [facility] The patient was accompanied to recovery room in good condition. Instrument count correct x3.
--- NOTE | 2020-09-29 04:01 | Post Anesthesia Evaluation ---
- Post Anesthesia Evaluation Patient Participated: Yes Airway Patent: Yes Stable Respiratory Function: Yes Nausea/Vomiting: No Temp > 96.8F: Yes Adequeate Hydration: No Block Receding Appropriately: Yes Patient on Ventilator: No
--- NOTE | 2020-09-29 04:02 | Progress Note ---
Spinal Anesthesia Block - Spinal Anesthesia Block Start Time: 02:20 Stop Time: :25 Performed by:: LUCERO ABDI Procedure: Spinal anesthesia block is being performed for [repeat c/s, SRM]. H&P, labs have been reviewed. Patient's questions and concerns have been answered. Informed consent has been performed. Timeout has was performed. Patient in sitting position on side of bed. Sterile prep and drape was performed. 3 mL 1% lidocaine skin wheal at L [3]-L [4]. Needle introducer advanced. 25-gauge spinal needle advanced, [+] CSF [-] blood. [.75% bupi w/ dextrose and 10 mcg precedex] Spinal dose was given. All needles removed. Patient tolerated procedure well.
--- NOTE | 2020-09-29 04:03 | Progress Note ---
Regional Anesthesia Block - Regional Anesthesia Block Start Time: 03:48 Stop Time: 03:56 Performed By:: LUCERO ABDI Procedure: Patient consented for TAP block for post surgical pain management. Patient identified, monitors placed, and time out performed. Mid axillary TAP identified bilaterally via ultrasound. Skin prepped bilaterally with [chlorhexidine] and [20g stimuplex] needle advanced to the TAP. 30ml [Marcaine 0.25% with 25mcg Precedex and Decadron 5mg] injected under ultrasound guidance on the [left] side. 30ml [Marcaine 0.25% with 25mcg Precedex and Decadron 5mg] injected under ultrasound guidance on the [right] side. Negative aspiration every 5mL, Patient tolerated the procedure well. No apparent complications seen.
[2020-09-29] MEDS ORDERED: OXYTOCIN DRIP 30 UNITS/500 ML BAG IV SCH (05:22)
[2020-09-29] MEDS ORDERED: WITCH HAZEL/ GLYCERIN PAD TP PRN (05:22)
[2020-09-29] MEDS ORDERED: SIMETHICONE 80 MG CHEW TAB PO PRN (05:22)
[2020-09-29] MEDS ORDERED: MAGNESIUM HYDROXIDE (MOM) ORAL LIQD UDC PO PRN (05:22)
[2020-09-29] MEDS ORDERED: NALOXONE 0.4 MG/1 ML INJ IV PRN (05:22)
[2020-09-29] MEDS ORDERED: LANOLIN/ZINC/DIMETHICONE (LANSINOH) 7 GM TP PRN (05:22)
[2020-09-29] MEDS ORDERED: ONDANSETRON 4 MG/2 ML INJ IV PRN (05:22)
[2020-09-29] MEDS: D5W/LACTATED RINGERS 1,000 ML IV SCH ×2 (07:20→15:36)
[2020-09-29] MEDS: CLINDAMYCIN 600 MG/50 mL 600 MG/50 ML BAG IV SCH ×2 (07:38→15:31)
[2020-09-29] MEDS: KETOROLAC 30 MG/1 ML INJ IV SCH ×3 (07:38→21:17)
--- NOTE | 2020-09-29 08:11 | Event Note ---
Date: 09/29/20 Patient feeling well, denies GOULD/Visual changes or epigastric pain. b/p's running low-normal (90-100's/30-60's), rn turned mag sulfate off around 0630. Will continue to monitor, if blood pressures normal by 1000, will transfer to [facility] for normal postop pathway. Discussed with patient if b/p's increase, will need to return to labor and delivery for 24hrs of mag sulfate. Incision D&I, lochia scant. Will continue to monitor closely.
[2020-09-29 08:44] LABS: Bilirubin,Urine NEG (Negative); Blood,Urine LG (Negative); Color,Urine Yellow (Yellow); Mucus,Urine FEW /HPF; Urobilinogen,Urine < 2.0 mg/dL (<2.0)
[2020-09-29 09:26] LABS: Hematocrit 24.7 % (30.3-42.9); Mean Corpuscular HGB Conc 33 % (30-34); Mean Corpuscular Volume 81 fl (79-97); Platelet Count 198 K/mm3 (140-440); Red Blood Count 3.05 M/mm3 (3.65-5.03); Red Cell Distribution Width 14.8 % (13.2-15.2)
[2020-09-29 09:42] LABS: Alanine Aminotransferase 10 units/L (7-56); Uric Acid 6.3 mg/dL (3.5-7.6)
[2020-09-29] MEDS: PRENATAL VIT27-FE FUMARATE-FOLIC ACID VIT TAB PO SCH (10:09)
[2020-09-29] MEDS: FERROUS SULFATE 325 MG TAB PO SCH (10:09)
--- NOTE | 2020-09-29 12:37 | Event Note ---
Date: 09/29/20 reviewed b/p trending upward, UA + Protienuria. will resume mag sulfate @ 1gm/hr for pre-e. Plan of care reviewed with patient. All questions addressed.
[2020-09-29 15:49] LABS: Hematocrit 23.4 % (30.3-42.9); Hemoglobin 7.6 gm/dl (10.1-14.3)
[2020-09-29] MEDS ORDERED: hydrALAZINE 20 MG/1 ML INJ IV ONE (17:30)
[2020-09-30] MEDS: D5W/LACTATED RINGERS 1,000 ML IV SCH (00:16)
[2020-09-30] MEDS ORDERED: LIDOCAINE (2%) 20 MG/1 ML VIAL 20 ML MDV INFILTRATI ONE (01:48)
[2020-09-30] MEDS: KETOROLAC 30 MG/1 ML INJ IV SCH (03:44)
[2020-09-30] MEDS ORDERED: IBUPROFEN 600 MG TAB PO PRN (03:44)
[2020-09-30] MEDS: FERROUS SULFATE 325 MG TAB PO SCH (09:47)
[2020-09-30] MEDS: PRENATAL VIT27-FE FUMARATE-FOLIC ACID VIT TAB PO SCH (09:47)
--- NOTE | 2020-09-30 11:07 | Progress Note ---
Assessment and Plan A: 35 y.o. s/p rpt . Pre e on mag. P: Mag infusion d/t be turned off @ 1119am. Will transfer to mother baby. Continue to monitor blood pressure and worsening s/sx of pre e. Subjective - Subjective Date of service: 09/30/20 (Doing well.) Principal diagnosis: s/p d/t breech. On mag d/t pre e Patient reports: appetite normal, pain well controlled, flatus [place]: doing well Objective - Vital Signs Latest vital signs: Vital Signs Temp Pulse Resp BP BP Pulse Ox Pulse Ox 09/30/20 11:03 97 H 99 09/30/20 10:58 83 100 09/30/20 10:53 84 100 09/30/20 10:48 89 99 09/30/20 10:43 94 H 98 09/30/20 10:38 101 H 99 09/30/20 10:33 92 H 99 09/30/20 10:28 100 H 99 09/30/20 10:25 96 H 133/63 09/30/20 10:23 93 H 99 09/30/20 10:18 90 99 09/30/20 10:13 88 99 09/30/20 10:08 94 H 100 09/30/20 10:03 98 H 99 09/30/20 09:58 93 H 100 09/30/20 09:53 105 H 100 09/30/20 09:48 92 H 100 09/30/20 09:43 92 H 100 09/30/20 09:38 92 H 100 09/30/20 09:33 101 H 100 09/30/20 09:28 95 H 99 09/30/20 09:25 92 H 144/62 09/30/20 09:23 88 99 09/30/20 09:18 104 H 99 09/30/20 09:13 100 H 99 09/30/20 09:08 90 99 09/30/20 09:03 100 H 99 09/30/20 08:58 93 H 100 09/30/20 08:53 94 H 99 09/30/20 08:48 94 H 100 09/30/20 08:43 93 H 99 09/30/20 08:38 102 H 100 09/30/20 08:33 103 H 99 09/30/20 08:28 100 H 98 09/30/20 08:26 101 H 92 09/30/20 08:23 100 H 99 09/30/20 08:18 91 H 98 09/30/20 08:13 98 H 98 09/30/20 08:08 96 H 97 09/30/20 08:03 92 H 99 09/30/20 07:58 94 H 99 09/30/20 07:53 103 H 100 09/30/20 07:48 92 H 100 09/30/20 07:43 91 H 99 09/30/20 07:38 91 H 100 09/30/20 07:33 96 H 100 09/30/20 07:28 93 H 100 09/30/20 07:25 90 132/60 09/30/20 07:23 90 100 100 09/30/20 07:20 97.9 F 91 H 16 152/68 100 09/30/20 07:19 96 H 152/68 09/30/20 07:18 99 H 100 09/30/20 07:13 91 H 100 09/30/20 07:08 91 H 99 09/30/20 07:03 97 H 98 09/30/20 06:58 94 H 98 09/30/20 06:53 107 H 99 09/30/20 06:48 90 98 09/30/20 06:43 87 99 09/30/20 06:38 109 H 100 09/30/20 06:37 84 91 09/30/20 06:33 91 H 100 09/30/20 06:28 89 99 09/30/20 06:25 102 H 146/66 09/30/20 06:23 97.7 F 98 H 100 09/30/20 06:22 89 137/63 09/30/20 06:18 84 99 09/30/20 06:13 87 98 09/30/20 06:08 85 98 09/30/20 06:03 84 98 09/30/20 05:58 84 99 09/30/20 05:53 91 H 99 09/30/20 05:48 91 H 100 09/30/20 05:43 90 100 09/30/20 05:38 93 H 99 09/30/20 05:33 95 H 99 09/30/20 05:28 94 H 99 09/30/20 05:23 94 H 99 09/30/20 05:18 97 H 99 09/30/20 05:13 96 H 99 09/30/20 05:08 103 H 97 09/30/20 05:03 100 H 98 09/30/20 04:58 113 H 100 09/30/20 04:53 96 H 99 09/30/20 04:48 106 H 100 09/30/20 04:43 104 H 100 09/30/20 04:38 97 H 99 09/30/20 04:33 97 H 100 09/30/20 04:28 102 H 100 09/30/20 04:25 90 115/57 09/30/20 04:23 92 H 98 09/30/20 04:18 91 H 98 09/30/20 04:13 91 H 98 09/30/20 04:08 91 H 98 09/30/20 04:03 91 H 98 09/30/20 03:58 91 H 99 09/30/20 03:53 92 H 98 09/30/20 03:48 94 H 100 09/30/20 03:43 94 H 100 09/30/20 03:38 91 H 99 09/30/20 03:33 91 H 100 09/30/20 03:28 94 H 100 09/30/20 03:25 86 122/57 09/30/20 03:23 91 H 99 09/30/20 03:18 93 H 99 09/30/20 03:13 99 H 99 09/30/20 03:08 96 H 99 09/30/20 03:03 95 H 99 09/30/20 02:58 96 H 98 09/30/20 02:53 105 H 100 09/30/20 02:48 99 H 98 09/30/20 02:43 100 H 99 09/30/20 02:38 103 H 99 09/30/20 02:33 109 H 99 09/30/20 02:28 110 H 96 09/30/20 02:25 96 H 128/58 09/30/20 02:23 100 H 99 09/30/20 02:18 95 H 99 09/30/20 02:13 93 H 99 09/30/20 02:08 97 H 100 09/30/20 02:03 100 H 97 09/30/20 01:58 95 H 99 09/30/20 01:53 105 H 99 09/30/20 01:48 98 H 99 09/30/20 01:43 104 H 99 09/30/20 01:38 103 H 98 09/30/20 01:33 102 H 99 09/30/20 01:28 104 H 100 09/30/20 01:25 94 H 101/54 09/30/20 01:23 95 H 100 09/30/20 01:18 107 H 100 09/30/20 01:13 101 H 98 09/30/20 01:08 105 H 99 09/30/20 01:03 98 H 100 09/30/20 00:58 90 99 09/30/20 00:53 90 99 09/30/20 00:48 89 99 09/30/20 00:43 89 99 09/30/20 00:38 90 99 09/30/20 00:33 91 H 99 09/30/20 00:28 90 99 09/30/20 00:25 87 96/46 09/30/20 00:23 89 99 09/30/20 00:18 90 100 09/30/20 00:13 87 99 09/30/20 00:08 85 100 09/30/20 00:03 93 H 100 09/29/20 23:58 87 100 09/29/20 23:53 86 100 09/29/20 23:48 90 100 09/29/20 23:43 82 98 09/29/20 23:38 89 99 09/29/20 23:33 97 H 99 09/29/20 23:28 87 99 09/29/20 23:25 86 130/58 09/29/20 23:23 85 99 09/29/20 23:18 90 99 09/29/20 23:13 92 H 99 09/29/20 23:08 92 H 99 09/29/20 23:03 98 H 98 09/29/20 22:58 97 H 99 09/29/20 22:53 97 H 99 09/29/20 22:48 98 H 98 09/29/20 22:43 96 H 99 09/29/20 22:38 97 H 99 09/29/20 22:35 98 H 135/91 09/29/20 22:33 98 H 98 09/29/20 22:28 93 H 98 09/29/20 22:25 93 H 135/61 09/29/20 22:23 95 H 98 09/29/20 22:18 100 H 99 09/29/20 22:13 94 H 99 09/29/20 22:08 90 99 09/29/20 22:03 95 H 99 09/29/20 21:58 91 H 100 09/29/20 21:53 107 H 100 09/29/20 21:48 89 99 09/29/20 21:43 90 99 09/29/20 21:38 95 H 99 09/29/20 21:33 98 H 99 09/29/20 21:28 94 H 99 09/29/20 21:25 100 H 116/56 09/29/20 21:23 92 H 100 09/29/20 21:18 93 H 100 09/29/20 21:13 93 H 99 09/29/20 21:08 95 H 100 09/29/20 21:03 92 H 100 09/29/20 20:58 93 H 100 09/29/20 20:53 90 100 09/29/20 20:48 78 96 09/29/20 20:43 97 H 100 09/29/20 20:38 92 H 100 09/29/20 20:33 98 H 100 09/29/20 20:28 96 H 100 09/29/20 20:25 96 H 141/64 09/29/20 20:23 98 H 99 09/29/20 20:18 97 H 99 09/29/20 20:13 100 H 99 09/29/20 20:08 109 H 99 09/29/20 20:03 99 H 98 09/29/20 19:58 101 H 100 09/29/20 19:53 95 H 100 09/29/20 19:48 99 H 99 09/29/20 19:43 96 H 99 09/29/20 19:38 99 H 100 09/29/20 19:33 97 H 99 09/29/20 19:28 106 H 99 09/29/20 19:23 99 H 99 09/29/20 19:22 99 H 139/64 09/29/20 19:18 100 H 100 09/29/20 19:13 108 H 100 09/29/20 19:11 97.8 F 104 H 16 146/62 100 09/29/20 19:08 105 H 100 09/29/20 19:04 112 H 146/62 100 09/29/20 19:03 114 H 99 09/29/20 18:58 113 H 100 09/29/20 18:53 102 H 100 09/29/20 18:52 100 H 158/67 09/29/20 18:48 105 H 100 09/29/20 18:46 106 H 182/68 09/29/20 18:43 105 H 182/68 99 09/29/20 18:38 125 H 100 09/29/20 18:37 118 H 181/65 09/29/20 18:33 98 H 99 09/29/20 18:30 13 100 09/29/20 18:28 97 H 100 09/29/20 18:23 100 H 100 09/29/20 18:22 99 H 175/77 09/29/20 18:18 111 H 100 09/29/20 18:15 92 H 173/76 09/29/20 18:13 91 H 100 09/29/20 18:10 88 163/69 09/29/20 18:09 88 163/69 09/29/20 18:08 91 H 100 09/29/20 18:07 88 163/70 09/29/20 18:03 92 H 100 09/29/20 18:01 88 166/74 09/29/20 17:58 92 H 100 09/29/20 17:53 96 H 100 09/29/20 17:52 88 162/76 09/29/20 17:48 97 H 99 09/29/20 17:43 86 99 09/29/20 17:38 92 H 100 09/29/20 17:37 93 H 147/68 09/29/20 17:33 85 99 09/29/20 17:30 12 100 09/29/20 17:28 87 99 09/29/20 17:23 88 100 09/29/20 17:22 86 143/66 09/29/20 17:18 87 99 09/29/20 17:13 83 98 09/29/20 17:08 85 99 09/29/20 17:07 86 152/68 09/29/20 17:03 85 99 09/29/20 16:58 85 99 09/29/20 16:53 85 99 09/29/20 16:52 82 143/63 09/29/20 16:51 85 154/67 09/29/20 16:48 83 99 09/29/20 16:43 91 H 99 09/29/20 16:38 109 H 190/72 99 09/29/20 16:33 86 99 09/29/20 16:30 14 100 09/29/20 16:28 88 99 09/29/20 16:23 93 H 99 09/29/20 16:22 98 H 160/72 09/29/20 16:18 95 H 99 09/29/20 16:13 89 99 09/29/20 16:08 86 99 09/29/20 16:07 85 150/67 09/29/20 16:03 87 98 09/29/20 15:58 87 99 09/29/20 15:53 94 H 144/61 100 09/29/20 15:49 88 156/70 09/29/20 15:48 85 100 09/29/20 15:43 88 99 09/29/20 15:38 94 H 99 09/29/20 15:37 83 154/70 09/29/20 15:34 13 99 09/29/20 15:33 80 99 09/29/20 15:31 78 162/72 09/29/20 15:30 82 161/67 09/29/20 15:28 83 99 09/29/20 15:23 77 164/69 99 09/29/20 15:18 80 99 09/29/20 15:13 86 99 09/29/20 15:08 84 152/63 99 09/29/20 15:03 80 99 09/29/20 14:58 85 99 09/29/20 14:53 81 156/65 99 09/29/20 14:48 92 H 99 09/29/20 14:43 98 H 99 09/29/20 14:38 70 98 09/29/20 14:37 72 151/72 09/29/20 14:33 74 98 09/29/20 14:30 12 99 09/29/20 14:28 69 98 09/29/20 14:23 70 99 09/29/20 14:22 73 151/71 09/29/20 14:18 72 98 09/29/20 14:13 71 99 09/29/20 14:08 84 99 09/29/20 14:07 75 145/70 09/29/20 14:03 78 100 09/29/20 13:58 82 99 09/29/20 13:53 83 13 98 09/29/20 13:52 80 141/71 09/29/20 13:48 81 98 09/29/20 13:43 83 99 09/29/20 13:38 83 98 09/29/20 13:37 83 142/71 09/29/20 13:33 64 98 09/29/20 13:28 84 98 09/29/20 13:23 101 H 140/70 98 09/29/20 13:18 77 98 09/29/20 13:13 79 99 09/29/20 13:08 75 100 09/29/20 13:07 79 155/73 09/29/20 13:03 81 99 09/29/20 12:58 80 99 09/29/20 12:53 82 100 09/29/20 12:52 82 149/69 09/29/20 12:48 81 100 09/29/20 12:43 86 99 09/29/20 12:38 80 12 99 09/29/20 12:37 81 143/67 09/29/20 12:33 80 99 09/29/20 12:28 77 97 09/29/20 12:23 79 98 09/29/20 12:22 78 137/61 09/29/20 12:18 79 98 09/29/20 12:15 12 98 09/29/20 12:13 83 98 09/29/20 12:08 78 98 09/29/20 12:07 76 135/61 09/29/20 12:03 76 98 09/29/20 12:00 12 98 09/29/20 11:58 78 99 09/29/20 11:53 73 99 09/29/20 11:52 88 132/61 09/29/20 11:48 74 99 09/29/20 11:43 84 99 09/29/20 11:38 83 99 09/29/20 11:37 81 135/60 09/29/20 11:33 89 98 09/29/20 11:28 78 98 09/29/20 11:23 78 99 09/29/20 11:22 77 135/60 09/29/20 11:18 77 98 09/29/20 11:13 85 99 09/29/20 11:08 82 139/60 98 Intake and Output 0809/30/20 09/30/20 22:59 06:59 14:59 Intake Total 620 650 Output Total 2300 1200 1500 Balance -1680 -550 -1500 Intake: IV 620 650 D5lr 1,000 ml @ 75 mls/hr 620 650 IV DIRECT LENNOX Rx#: [id number] Output: Urine 2300 1200 1500 Indwelling Catheter 2300 1200 1500 Other: Total, Output Amount 250 900 900 - Exam Narrative Exam: Denies GOULD, blurred vision, spots before her eyes, shortness of breath, chest pain, and upper abdominal pain. We discussed should any of these symptoms occur, she will let RN know immediately. Her blood pressure ranges have been 130- 150's/60's. Will continue to monitor blood pressures on Labetalol 200mg BID. Breasts: Present: deferred Cardiovascular: Present: Normal S1, Normal S2 Lungs: Present: Normal air movement Abdomen: Present: normal appearance, soft Vulva: both: normal Uterus: Present: normal, firm Extremities: Present: normal Deep Tendon Reflex Grade: Normal +2 Incision: Present: normal, dry, intact, other (No drainage or s/sx of infection noted. ) - Labs Labs: Abnormal lab results 09/29/20 09/29/20 09/30/20 Range/Units 14:58 19:38 00:05 Hgb 7.6 L (10.1-14.3) gm/dl Hct 23.4 L (30.3-42.9) % Magnesium 4.10 H 4.40 H (1.7-2.3) mg/dL 09/30/20 Range/Units 05:40 Hgb (10.1-14.3) gm/dl Hct (30.3-42.9) % Magnesium 4.60 H (1.7-2.3) mg/dL
[2020-09-30] MEDS: HYDROcodone/ACETAMINOPHEN 5-325 MG TAB PO PRN (17:10)
[2020-09-30] MEDS: IBUPROFEN 800 MG TAB PO PRN (22:26)
[2020-10-01] MEDS: HYDROcodone/ACETAMINOPHEN 5-325 MG TAB PO PRN (05:28)
--- NOTE | 2020-10-01 09:02 | Discharge Summary ---
Providers - Providers Date of Admission: 09/28/20 22:30 Date of discharge: 10/01/20 (Pt has strong desire to go home. ) Attending physician: SAGE BIRMINGHAM 09/29/20 05:22 Consult to Lay Out Inspector [CONS] Routine Reason For Exam: Primary care physician: SAGE BIRMINGHAM Hospitalization Reason for admission: rupture of membranes Delivery: Procedure: repeat low transverse Episiotomy: none Laceration: none Incision: normal, dry, intact Other procedures: tubal ligation complications: other (Pre Eclampsia.) Discharge diagnosis: IUP at term delivered [place] baby: female Pertinent studies: Pt denies GOULD, blurred vision, spots before her eyes, chest pain, shortness of breath, upper abdominal pain. We discussed should these symptoms occurred to call the loss prevention and safety manager provider immediately. We also discussed how to take a blood pressure and when to call with questions and concerns. Hospital course: S: Pt is doing well. Ambulating, voiding, passing flatus okay. BC: Salpingectomy during . O: VSS. Blood pressure ranges from mostly 120-140's/60-80's. Fundus firm, minimal bleeding noted. H/H 8.0/24.7, asymptomatic anemia of . Incision open to air, intact, no s/sx of infection, and no drainage noted. A: 35 y.o. s/p rpt , mag infusion d/t pre e. Now in good condition and can be discharged home. P: Discharge home with instructions. Pt to schedule incision check and blood pressure check in the office in 1 week. Disposition: 30 STILL A PATIENT Plan - Discharge Medications Prescriptions: Docusate Sodium [Colace] 100 mg PO BID PRN #60 capsule PRN Reason: Constipation Ferrous Sulfate [Feosol 325 MG tab] 325 mg PO BID #60 tablet labetaloL [Labetalol 200mg TAB] 200 mg PO BID #60 tablet Ibuprofen [Motrin] 800 mg PO TID PRN #30 tablet PRN Reason: Pain oxyCODONE /ACETAMINOPHEN [Percocet 5/325 mg] 1 - 2 tab PO Q6HR PRN #20 tablet PRN Reason: Pain - Provider Discharge Summary Activity: routine, no sex for 6 weeks, no heavy lifting 4 weeks, no strenuous exercise Diet: routine Instructions: routine Additional instructions: [] Smoking cessation referral if applicable(refer to patient education folder for contact #) [] Refer to [facility]'s [facility] Booklet Call your doctor immediately for: * Fever > 100.5 * Heavy vaginal bleeding ( >1 pad per hour) * Severe persistent headache * Shortness of breath * Reddened, hot, painful area to leg or breast * Drainage or odor from incision. * Keep incision clean and dry at all times and follow doctor's instructions regarding bathing/showering Congratulations on the of your baby girl! Thank you for allowing us to take care of you! Please schedule an incision check and blood pressure check in the office in 1 week. Please schedule your visit in the office in 4 weeks. Should you have any questions or concerns after discharge, please do not hesitate to call the office at [phone]. Taking your blood pressure at home Please take your blood pressure at least once daily Take your blood pressure medication as written by your provider Taking your blood pressure with a wrist monitor: 1. Put the blood pressure cuff on your wrist. Make sure it is not on the bone of your wrist. 2. Sit with your legs uncrossed and feet flat on the ground. 3. Wait 5-10 minutes before taking your blood pressure. 4. If you wrist monitor requires you to put your arm across your chest: After 5-10 minutes, put your arm across your chest like you are about to say the pledge of allegiance. Taking your blood pressure with a cuff monitor: 1. Put the blood pressure cuff on your arm. 2. Sit with your legs uncrossed and feet flat on the ground. Make sure your arm is relaxed on a table or your kitchen table and bent at a 90 degree angle. 3. After 5-10 minutes push the button to take your blood pressure. While you are at home, if you experience a headache, blurred vision, spots before your eyes, chest pain, shortness of breath, and pain in your upper belly, and/or your blood pressure is 140/90 or greater please call the on-call provider immediately and await further instructions. - Follow up plan Follow up: SAGE BIRMINGHAM MD [Primary Care Provider] - 7 Days
[2020-10-01] MEDS: FERROUS SULFATE 325 MG TAB PO SCH (09:43)
[2020-10-01] MEDS: PRENATAL VIT27-FE FUMARATE-FOLIC ACID VIT TAB PO SCH (09:43)
[2020-10-01] MEDS: IBUPROFEN 800 MG TAB PO PRN (09:43)
[2020-10-01 12:27] VITALS: BP 137/57
== END 2020-10-01 14:10 | disposition home or self-care (01) | DRG 784 ==
LOC: APU 22:30 → LD 09-29 01:39 → OB 09-30 13:11
PROVIDERS: ADMIT Obstetrics & Gynecology; ATTEND Obstetrics & Gynecology
PROC: 0UB70ZZ Excision of Bilateral Fallopian Tubes, Open Approach (ICD-10-PCS; principal; 2020-09-29)
PROC: 10D00Z1 Extraction of Products of Conception, Low, Open Approach (ICD-10-PCS; 2020-09-29)
PROC: 3E0T3BZ Introduction of Anesthetic Agent into Peripheral Nerves and Plexi, Percutaneous Approach (ICD-10-PCS; 2020-09-29)
DX: O34.211 Maternal care for low transverse scar from previous cesarean delivery (principal); D62 Acute posthemorrhagic anemia; O42.02 Full-term premature rupture of membranes, onset of labor within 24 hours of rupture; Z20.822 Contact with and (suspected) exposure to COVID-19; Z3A.38 38 weeks gestation of pregnancy; Z37.0 Single live birth; Z88.8 Allergy status to other drugs, medicaments and biological substances; Z30.2 Encounter for sterilization; O90.81 Anemia of the puerperium
CPT/HCPCS: 36415; 81001; 82565; 83615; 83735; 84450; 84460; 84550; 85014; 85018; 85025; 85027; 86850; 86900; 86901; 87086; 88302; 99211; G0378; G0463; J0360; J1885; J2405; J2765; J3475; J3490; J7120; J7121; U0003